=== PATIENT | female | born 1990 | race Caucasian/White ===

== ENCOUNTER 2018-12-19 17:02 | Emergency (ER) | payer MEDICAID ==
[~2018-12-19] VITALS: Ht 167.6 cm; Wt 63.5 kg
[2018-12-19 17:10] VITALS: BP 119/71; Ht 167.6 cm; Wt 63.5 kg
[2018-12-19 19:15] LABS: PLATELET COUNT 300 x10^3mcL (130-400)
[2018-12-19 19:16] LABS: RED CELL DISTRIBUTION WIDTH 15.7 % (11.5-14.5)
[2018-12-19 19:24] LABS: CALCIUM 8.4 mg/dL (8.5-10.1); CARBON DIOXIDE 27.9 mmol/L (21-32); CHLORIDE SERUM 105 mmol/L (98-107); CREATININE SERUM 0.7 mg/dL (0.6-1.0); GFR1 > 60 mL/min; GLUCOSE SERUM 95 mg/dL (74-106); POTASSIUM SERUM 3.8 mmol/L (3.5-5.1); SODIUM SERUM 141 mmol/L (136-145)
[2018-12-19 19:28] LABS: ALBUMIN 3.7 g/dL (3.4-5.0); ALKALINE PHOSPHATASE 53 U/L (46-116); ALT/SGPT 18 U/L (14-59); AMYLASE 49 U/L (25-115); AST/SGOT 16 U/L (15-37); BILIRUBIN TOTAL 0.38 mg/dL (0.20-1.00); LIPASE 79 IU/L (73-393); TOTAL PROTEIN, SERUM 7.1 g/dL (6.4-8.2)
== END 2018-12-19 19:53 | disposition left against medical advice (07) ==
LOC: ED 17:02
PROVIDERS: Emergency Medicine
DX: Z53.21 Procedure and treatment not carried out due to patient leaving prior to being seen by health care provider (principal)

== ENCOUNTER 2019-05-19 21:44 | Emergency (ER) | payer MEDICAID ==
[~2019-05-19] VITALS: Ht 165.1 cm; Wt 61.7 kg
[2019-05-19 21:50] VITALS: Ht 165.1 cm; Wt 61.7 kg
[2019-05-20 00:10] LABS: BASOPHIL % 0.4 % (0-2); PLATELET COUNT 261 x10^3mcL (130-400)
[2019-05-20 00:15] LABS: RED CELL DISTRIBUTION WIDTH 16.2 % (11.5-14.5)
[2019-05-20 01:01] LABS: CALCIUM 9.2 mg/dL (8.5-10.1); CARBON DIOXIDE 24.8 mmol/L (21-32); CHLORIDE SERUM 105 mmol/L (98-107); CREATININE SERUM 0.6 mg/dL (0.6-1.0); GFR1 > 60 mL/min; GLUCOSE SERUM 77 mg/dL (74-106); POTASSIUM SERUM 3.9 mmol/L (3.5-5.1); SODIUM SERUM 140 mmol/L (136-145)
[2019-05-20 01:07] LABS: ALBUMIN 3.3 g/dL (3.4-5.0); ALKALINE PHOSPHATASE 45 U/L (46-116); ALT/SGPT 16 U/L (14-59); AST/SGOT 7 U/L (15-37); BILIRUBIN TOTAL 0.27 mg/dL (0.20-1.00); TOTAL PROTEIN, SERUM 6.4 g/dL (6.4-8.2)
[2019-05-20 03:16] VITALS: BP 112/67
== END 2019-05-20 03:16 | disposition home or self-care (01) ==
LOC: ED 21:44
PROVIDERS: Emergency Medicine
DX: O23.01 Infections of kidney in pregnancy, first trimester (principal); Z3A.11 11 weeks gestation of pregnancy
CPT/HCPCS: J0696

== ENCOUNTER 2019-06-28 08:18 | Emergency (ER) | payer SELFPAY ==
[~2019-06-28] VITALS: Ht 165.1 cm; Wt 60.8 kg
[2019-06-28 09:34] VITALS: BP 115/72
== END 2019-06-28 09:34 | disposition home or self-care (01) ==
LOC: ED 08:18
DX: O26.892 Other specified pregnancy related conditions, second trimester (principal); R10.9 Unspecified abdominal pain

== ENCOUNTER 2019-09-23 02:24 | Emergency (ER) | payer MEDICAID ==
[~2019-09-23] VITALS: Ht 165.1 cm; Wt 65.8 kg
[2019-09-23 02:34] VITALS: Ht 165.1 cm; Wt 65.8 kg
[2019-09-23 02:52] LABS: BASOPHIL % 0.7 % (0-2); PLATELET COUNT 301 x10^3mcL (130-400); RED CELL DISTRIBUTION WIDTH 11.8 % (11.5-14.5)
[2019-09-23 03:04] LABS: CALCIUM 7.8 mg/dL (8.5-10.1); CARBON DIOXIDE 23.9 mmol/L (21-32); CHLORIDE SERUM 107 mmol/L (98-107); CREATININE SERUM 0.6 mg/dL (0.6-1.0); GFR1 > 60 mL/min; GLUCOSE SERUM 78 mg/dL (74-106); POTASSIUM SERUM 3.6 mmol/L (3.5-5.1); SODIUM SERUM 140 mmol/L (136-145)
[2019-09-23 03:10] LABS: ALKALINE PHOSPHATASE 80 U/L (46-116); ALT/SGPT 22 U/L (14-59); AST/SGOT 16 U/L (15-37); BILIRUBIN TOTAL 0.3 mg/dL (0.20-1.00); TOTAL PROTEIN, SERUM 6.4 g/dL (6.4-8.2)
[2019-09-23 03:16] LABS: ALBUMIN 2.7 g/dL (3.4-5.0)
[2019-09-23 06:01] VITALS: BP 105/73
== END 2019-09-23 06:01 | disposition home or self-care (01) ==
LOC: ED 02:24
PROVIDERS: Emergency Medicine
DX: O26.893 Other specified pregnancy related conditions, third trimester (principal); O21.9 Vomiting of pregnancy, unspecified; R10.30 Lower abdominal pain, unspecified; Z3A.29 29 weeks gestation of pregnancy
CPT/HCPCS: Q0092

== ENCOUNTER 2020-08-14 03:18 | Emergency (ER) | payer OTHER ==
[~2020-08-14] VITALS: Ht 165.1 cm; Wt 55.0 kg
[2020-08-14 03:31] VITALS: Ht 165.1 cm; Wt 55.0 kg
[2020-08-14 04:09] LABS: BASOPHIL % 0.4 % (0-2); PLATELET COUNT 284 x10^3mcL (130-400); RED CELL DISTRIBUTION WIDTH 13.4 % (11.5-14.5)
[2020-08-14 06:07] VITALS: BP 136/91
== END 2020-08-14 06:02 | disposition home or self-care (01) ==
LOC: ED 03:18
PROVIDERS: Emergency Medicine
DX: O20.0 Threatened abortion (principal)
CPT/HCPCS: Q0092; Q0162